=== PATIENT | female | born 1985 | race Caucasian/White ===

== ENCOUNTER 2024-07-13 14:33 | Emergency (ER) | payer MEDICAID, SELFPAY ==
[2024-07-13 14:58] VITALS: BP 134/86; PULSE 96; RESP 16; TEMP 36.9; O2SAT 97; BMI 37.4
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
== END 2024-07-13 18:02 | disposition home or self-care (01) ==
PROVIDERS: Emergency Provider Emergency Medicine
DX: S13.4XXA Sprain of ligaments of cervical spine, initial encounter (principal); Y04.0XXA Assault by unarmed brawl or fight, initial encounter; Y92.524 Gas station as the place of occurrence of the external cause
CPT/HCPCS: 70450; 72125; 99284